=== PATIENT | male | born 1980 | race Hispanic/Latino ===

== ENCOUNTER → 2017-05-05 16:44 | Outpatient (CLI) | payer BC, SELFPAY | PROVIDERS: Visit Provider Physician Assistant Surgical | DX: J02.9 Acute pharyngitis, unspecified (principal) | CPT/HCPCS: 87081 ==

== ENCOUNTER → 2018-03-13 14:08 | Outpatient (CLI) | payer BC, SELFPAY ==
[2018-03-13 07:14] VITALS: BMI 34.4
== END ==
PROVIDERS: Referring Provider Physician Assistant Surgical; Visit Provider Physician Assistant Surgical
DX: J02.9 Acute pharyngitis, unspecified (principal)
CPT/HCPCS: 87081